=== PATIENT | female | born 1965 | race Asian ===

== ENCOUNTER → 2019-10-18 | Outpatient (CLI) | payer MEDICARE | END | disposition home or self-care (01) | LOC: RAH 13:56 | PROVIDERS: ATTEND Orthopaedic Surgery | DX: M75.101 Unspecified rotator cuff tear or rupture of right shoulder, not specified as traumatic (principal); M75.91 Shoulder lesion, unspecified, right shoulder | CPT/HCPCS: 73221 ==

== ENCOUNTER 2022-09-22 06:50 | Day surgery (SDC) | payer MEDICARE ==
[2022-09-18 10:21] LABS: BASOPHILS % (AUTO) 0.1 % (0.0-5.0); EOSINOPHILS % (AUTO) 2.6 % (0.0-8.0); HEMATOCRIT 40.7 % (36-48); MEAN CORPUSCULAR HEMOGLOBIN 28.4 pg (27.0-33.0); MEAN CORPUSCULAR HGB CONC 32.9 g/dL (32.0-36.0); MEAN CORPUSCULAR VOLUME 86.2 fL (79-99); MONOCYTES % (AUTO) 8.5 % (3.0-13.0); NEUTROPHILS % (AUTO) 67.4 % (40.0-77.0); PLATELET COUNT (AUTO) 211 K/uL (130-400); RED BLOOD CELL COUNT(AUTO) 4.72 MIL/uL (4.00-5.50)
[2022-09-18 10:32] LABS: APPEARANCE,URINE CLEAR (CLEAR); BILIRUBIN,URINE NEGATIVE (NEGATIVE); COLOR,URINE LIGHT-YELLOW (YELLOW); GLUCOSE, URINE (UA) NEGATIVE (NEGATIVE); KETONES,URINE NEGATIVE (NEGATIVE); LEUKOCYTE ESTERASE ,URINE 25 Leu/uL (NEGATIVE); NITRATE,URINE NEGATIVE (NEGATIVE); OCCULT BLOOD,URINE NEGATIVE (NEGATIVE); PROTEIN,URINE 30 mg/dL (NEGATIVE); UROBILINOGEN,URINE 0.2 mg/dL (0.2-1.0)
[2022-09-18 10:37] LABS: ALBUMIN 4.1 g/dL (3.5-5.0); CREATININE 1.2 mg/dL (0.5-1.5); TOTAL PROTEIN, SERUM 8.3 g/dL (6.0-8.3)
[2022-09-18 10:44] LABS: PROTHROMBIN TIME 10.9 SEC (9.6-11.6)
[2022-09-18 10:54] LABS: BACTERIA,URINE RARE /HPF (None Seen); MUCUS,URINE RARE LPF (None Seen); SQUAMOUS EPITHELIAL CELL,UR FEW /HPF (0-2)
[2022-09-19 10:22] VITALS: BP 143/69
[2022-09-22] VITALS (19 sets, daily range): BP systolic 129–152; BP diastolic 58–73
[~2022-09-22] VITALS: Ht 152.4 cm; Wt 71.4 kg
[~2022-09-22 06:50] MED LIST: 0.9%NACL 1000ML 1,000 ML IV SCH; AEC81 PO; ALBUMIN (HUMAN) 25% 50 ML IV ONE; BUPIVACAINE/PF 0.25% 30ML VIAL IJ ONE; CARV25TA PO; CEFAZOLIN SODIUM 1 GM VIAL IVP SCH; CHOL500051 PO; CYAN100084 PO; FAMO40TA7 PO; FOLI0.8C PO; FURO-151 PO; MIRA25TA PO; MYCO500T PO; ROSU5TAB12 PO; TACR1CAP10 PO; UBID100C10 PO
[2022-09-22] MEDS ORDERED: PROTAMINE SULFATE 10 MG/ML 5 ML VIAL ONE ×2 (07:12→09:39)
[2022-09-22] MEDS ORDERED: LACTATED RINGERS 1000ML 0 ML IV ONE (07:19)
[2022-09-22] MEDS ORDERED: 0.9% NACL 500ML IV.SOLN 500 ML IV ONE (07:32)
[2022-09-22 07:43] LABS: CREATININE 1.3 mg/dL (0.5-1.5); POTASSIUM 3.1 mmol/L (3.5-5.1)
[2022-09-22] MEDS ORDERED: DEXAMETHASONE SOD PHOSPHATE 10MG/ML 1ML VIAL ONE (07:50)
[2022-09-22] MEDS ORDERED: SUCCINYLCHOLINE CHLORIDE 20 MG/ML 10 ML VIAL ONE (07:50)
[2022-09-22] MEDS ORDERED: LIDOCAINE PF 100MG/5ML (2%) SYRINGE 5ML ONE (07:50)
[2022-09-22] MEDS ORDERED: PROPOFOL 10 MG/ML 20ML VIAL IV ONE (07:51)
[2022-09-22] MEDS ORDERED: ONDANSETRON 4MG INJ ONE ×2 (07:51→10:27)
[2022-09-22] MEDS ORDERED: MIDAZOLAM HCL 1 MG/ML 2ML VIAL ONE (07:51)
[2022-09-22] MEDS ORDERED: GLYCOPYRROLATE 1 MG/5 ML SYRINGE ONE (07:51)
[2022-09-22] MEDS ORDERED: ROCURONIUM 10MG/1ML SYR 10 MG/ML ML ONE (07:51)
[2022-09-22] MEDS ORDERED: NEOSTIGMINE 5MG/5ML SYR IV ONE (07:51)
[2022-09-22] MEDS ORDERED: FENTANYL CITRATE PF 50 MCG/1 ML 2ML VIAL ONE (07:52)
[2022-09-22] MEDS ORDERED: EPHEDRINE SULFATE 50 MG/ML AMPULE ONE (08:37)
[2022-09-22] MEDS ORDERED: HEPARIN 10,000 UNIT/10ML (1,000 UNIT/ML) VIAL ONE (09:39)
[2022-09-22] MEDS ORDERED: MEPERIDINE-PF 25 MG/ML SYG ONE (10:27)
== END 2022-09-22 11:40 | disposition home or self-care (01) ==
LOC: DAH 06:50
PROVIDERS: ATTEND Student in an Organized Health Care Education/Training Program
DX: I77.0 Arteriovenous fistula, acquired (principal); Z20.822 Contact with and (suspected) exposure to COVID-19; I10 Essential (primary) hypertension; E78.5 Hyperlipidemia, unspecified; E66.9 Obesity, unspecified; Z79.82 Long term (current) use of aspirin; Z88.3 Allergy status to other anti-infective agents; Z98.890 Other specified postprocedural states; Z82.49 Family history of ischemic heart disease and other diseases of the circulatory system; Z83.3 Family history of diabetes mellitus; Z68.30 Body mass index [BMI] 30.0-30.9, adult; Z79.01 Long term (current) use of anticoagulants; Z79.899 Other long term (current) drug therapy
CPT/HCPCS: 71045; 87426; 80053; 84703 ×2; 85025; 85610; 85730; 87088; 81001; 36415 ×2; 93005; 35045; 80048; 88304; A6260; P9047; A4663; A6207; J7030; J7040; J3010; J0690; J3490 ×2; J1100; J2710; J0330; J2001; J2720 ×2; J1644; J2250; J2704; J2405 ×2; J2175; A4649 ×2; C1713 ×3; A4215; A4223; A4222; A4221; A4600; J7120